=== PATIENT | male | born 1970 | race Caucasian/White ===

== ENCOUNTER 2024-03-28 07:12 | Emergency (ER) | payer OTHER, SELFPAY ==
--- NOTE | 2024-03-28 | CRLHL7_ITS ---
For Patients: As a result of the Century Cures Act, medical imaging exams and procedure reports are released immediately into your electronic medical record. You may view this report before your referring provider. If you have questions, please contact your health care provider. INDICATION: Acute stroke. TECHNIQUE: CTA head with contrast bolus tracking, 3D angiographic rendering using maximum intensity projection (MIP) and images permanently archived. FINDINGS: There is normal opacification of the intracranial vasculature. There is no large vessel occlusion. No aneurysm is identified. IMPRESSION: Unremarkable head CTA. Please note that all CT scans at this facility use dose modulation, iterative reconstruction, and/or weight-based dosing when appropriate to reduce radiation dose to as low as reasonably achievable. Dictated by Dashawn Valencia MD @ 03/28/2024 8:10:18 AM (Electronically Signed)
--- NOTE | 2024-03-28 | CRLHL7_ITS ---
For Patients: As a result of the Century Cures Act, medical imaging exams and procedure reports are released immediately into your electronic medical record. You may view this report before your referring provider. If you have questions, please contact your health care provider. INDICATION: Acute stroke. TECHNIQUE: CTA neck with contrast bolus tracking, 3D angiographic rendering using maximum intensity projection (MIP) and images permanently archived. FINDINGS: There is no significant carotid artery stenosis or dissection. There is no significant vertebral artery stenosis or dissection. The soft tissues of the neck are within normal limits. The cervical spine is in normal alignment. IMPRESSION: Unremarkable neck CTA. No significant carotid or vertebral artery stenosis or dissection. Please note that all CT scans at this facility use dose modulation, iterative reconstruction, and/or weight-based dosing when appropriate to reduce radiation dose to as low as reasonably achievable. Dictated by Dashawn Valencia MD @ 03/28/2024 8:09:15 AM (Electronically Signed)
[2024-03-28 07:14] VITALS: BP 148/92; PULSE 92; RESP 18; TEMP 36.1; O2SAT 98; BMI 37.3
--- NOTE | 2024-03-28 07:21 | CRLHL7_ITS ---
For Patients: As a result of the Century Cures Act, medical imaging exams and procedure reports are released immediately into your electronic medical record. You may view this report before your referring provider. If you have questions, please contact your health care provider. INDICATION: Left facial droop TECHNIQUE: CT head without contrast. COMPARISON: None. FINDINGS: symmetric. The ventricles, sulci and cisterns are normal. BRAIN: No acute hemorrhage. Hypodensity in the region of the right posterior limb of the internal capsule (4/33). EXTRA-AXIAL: Extra-axial spaces are normal. EXTRA-CRANIAL: Skull and facial bones are normal. The visualized sinuses and mastoids are clear. Orbits are normal. IMPRESSION: Area of hypodensity in the posterior limb of the right internal capsule, concerning for age-indeterminate infarct. These results were communicated to [place] by Bob on 03/28/20[address] Please note that all CT scans at this facility use dose modulation, iterative reconstruction, and/or weight-based dosing when appropriate to reduce radiation dose to as low as reasonably achievable. Dictated by Martha Rojas MD @ 03/28/2024 7:43:44 AM (Electronically Signed)
--- NOTE | 2024-03-28 07:25 | ED.GENADULT ---
HPI - General Adult General Chief complaint: Neuro Symptoms/Altered Deficit Stated complaint: Facial drooping/left side Time Seen by Provider: 03/28/24 07:15 History of Present Illness HPI narrative: patient noticed around 0630 face feeling funny and left facial droop, numbness/ tingling in the mouth, tongue, lips. taken some Benadryl before coming to ED. seems to be getting worse. hx DM, HTN, Hyperlidemia 54-year-old man presenting to the emergency department with concern of left-sided facial numbness weakness, drooping. This began about an hour prior to arrival when he was driving to work. He maintains that he woke this morning brushing his teeth everything was normal. Began to feel a little funny in the drive to work and then when eating a sandwich was noticing that tongue was somewhat numb. Thinking maybe that might be an allergic reaction took some Benadryl. Got to work and more apparent drooping of the left side of his face and boss said I am taking you into the ER. Is not having any pain. No recent head trauma. No chest pain or shortness of breath. Related Data Home Medications ?Medication ?Instructions ?Recorded ?Confirmed aspirin 81 mg chewable tablet 81 mg PO DAILY 03/28/24 03/28/24 (Aspirin Childrens) atorvastatin PO DAILY 03/28/24 loratadine PO DAILY 03/28/24 losartan PO DAILY 03/28/24 metformin .ROUTE DAILY 03/28/24 Previous Rx's ?Medication ?Instructions ?Recorded prednisone 20 mg tablet 40 mg (2 x 20 mg) PO DAILY 7 days 03/28/24 #14 tabs valacyclovir 1 gram tablet 1,000 mg PO TID 7 days #21 tabs 03/28/24 Allergies Allergy/AdvReac Type Severity Reaction Status Date / Time amoxicillin Allergy Unknown Verified 03/28/24 07:41 Review of Systems Status of ROS: Reports: 6 or more systems reviewed and unremarkable except as noted in History and below [facility] Social History Smoking Status: Never smoker How often do you have a drink containing alcohol: 2-4 times a month AUDIT-C Alcohol total score: 2 Non-prescribed substance use: denies use Exam Narrative: Exam Narrative: Pleasant. On the phone with his spouse is I am seeing quickly in triage. Heart rate is up a little bit in a regular rhythm. There is a trace end systolic murmur I think. Breathing easily. Moving all extremities without difficulty. Appears to have full strength throughout. Noticeable though in speaking with him, he is speaking clearly, is that there is clear drooping of the left side of his mouth and left eyebrows low. Maintaining left eye blink. Both eyes are watering but I believe he has been tearful while conversing with his spouse. Pupils are 3 mm and briskly reactive and accommodating. Skin is warm and dry without rash, no blisters. Const: Vital Signs, click to edit/add: Vital Signs - 24 hr 03/28/24 07:14 03/28/24 07:41 03/28/24 07:42 Temperature 97.0 F L Pulse Rate Pulse Rate [Pulse Oximeter] 92 82 Respiratory Rate 18 16 Blood Pressure Blood Pressure [Ri ght Upper Arm] 148/92 H 146/78 H Pulse Oximetry 98 97 96 Oxygen Delivery Me thod Room Air Room Air 03/28/24 07:42 03/28/24 07:45 03/28/24 08:00 Temperature Pulse Rate 85 Pulse Rate [Pulse Oximeter] 85 83 98 Respiratory Rate 16 16 16 Blood Pressure 146/78 H Blood Pressure [Ri ght Upper Arm] 146/78 H 128/80 147/111 H Pulse Oximetry 96 95 96 Oxygen Delivery Me thod Room Air Room Air 03/28/24 08:00 Temperature Pulse Rate Pulse Rate [Pulse Oximeter] Respiratory Rate 16 Blood Pressure Blood Pressure [Ri ght Upper Arm] 132/73 Pulse Oximetry 96 Oxygen Delivery Me thod Room Air Documenting provider has reviewed patient's vital signs: yes Course Vital Signs Vital signs: Initial Vital Signs Temperature 97.0 F L 03/28/24 07:14 Temperature Source Temporal Artery Scan 03/28/24 07:14 Pulse Rate 92 03/28/24 07:14 Respiratory Rate 18 03/28/24 07:14 Blood Pressure 148/92 H 03/28/24 07:14 Blood Pressure Mean 110 H 03/28/24 07:14 Blood Pressure Position Sitting 03/28/24 07:14 Pulse Oximetry 98 03/28/24 07:14 Oxygen Delivery Method Room Air 03/28/24 07:14 Vital Signs Temperature 97.0 F L 03/28/24 07:14 Pulse Rate 92 03/28/24 07:14 Respiratory Rate 18 03/28/24 07:14 Blood Pressure 148/92 H 03/28/24 07:14 Pulse Oximetry 98 03/28/24 07:14 Oxygen Delivery Method Room Air 03/28/24 07:14 Temperature 97.0 F L 03/28/24 07:14 Pulse Rate 98 03/28/24 08:00 Respiratory Rate 16 03/28/24 08:00 Blood Pressure 132/73 03/28/24 08:00 Pulse Oximetry 96 03/28/24 08:00 Oxygen Delivery Method Room Air 03/28/24 08:00 Medical Decision Making MDM Narrative Medical decision making narrative: 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 No lesions to indicate [employer]. Unusually abrupt onset however. He maintains that was not like this when he was brushing his teeth. Demonstrating no ataxia or discoordination otherwise to suggest brainstem lesion Stroke code was activated during my interview. Did speak with Dr. Jaeger who also suspects Stephens's palsy but will be reviewing and following this case. Independent review by me of noncontrast head CT does not reveal any acute abnormality, no bleed. Point of care blood sugar is 250. Noted history of diabetes. I was contacted by radiology to review initial head CT. Findings as below INDICATION: Left facial droop TECHNIQUE: CT head without contrast. COMPARISON: None. FINDINGS: symmetric. The ventricles, sulci and cisterns are normal. BRAIN: No acute hemorrhage. Hypodensity in the region of the right posterior limb of the internal capsule (4/33). EXTRA-AXIAL: Extra-axial spaces are normal. EXTRA-CRANIAL: Skull and facial bones are normal. The visualized sinuses and mastoids are clear. Orbits are normal. IMPRESSION: Area of hypodensity in the posterior limb of the right internal capsule, concerning for age-indeterminate infarct. These results were communicated to [place] by Bob on 03/28/2024 I do not think that this described hypodensity would explain the left-sided facial symptoms. Pending vascular studies at this time. Speaking again with Stroke Neuro. In agreement likely, certainly to have Stephens's. Vascular studies/CT angio of head and neck are unremarkable. However in setting of diabetes with suspected capsular lesion, recommending MRI if possible to do that this morning. We are actually able to do basic brain this morning and pending this now. Already taking 81 mg of aspirin daily. Decided to proceed with the MRI. Radiology over-read below. 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 Comparison: CT 03/28/2024 Findings: Examination is limited by motion artifact. The ventricles, sulci and gyri are normal size, shape and contour for age. The midline structures are centrally located with no evidence of shift. Few punctate scattered foci of T2 prolongation in the supratentorial white matter, particularly the left external capsule and bilateral temporal lobe subcortical white matter are nonspecific. There are no suspicious intra or extra-axial fluid collections. No pathologic susceptibility artifacts. The pituitary gland, optic chiasm, pineal gland, and cerebellar tonsils are unremarkable. No region of restricted diffusion. Expected flow voids in the cavernous carotids and basilar artery. Rightward deviation of the nasal septum. Impression: 1. No acute intracranial abnormalities. 2. Few scattered foci of T2 prolongation in the supratentorial white matter nonspecific. Differential considerations include sequela of migraine headaches, prior inflammation, and chronic small vessel disease No further progression of symptoms. Vitals stable. Confirmed that taking 81 mg of aspirin. See patient discharge plan for further discussion Stay well-hydrated. Watch your blood sugars closely partly as will be giving you prednisone which can raise your blood sugars. Continue to take your daily aspirin. Prescribing prednisone and valacyclovir. This can take weeks to resolve. Since you have trouble blinking, would recommend getting generic eye ointment or Lacri-Lube or refresh p.m. eyedrops to keep your eye moist. If using ointment dose at least 4 times daily. Would also consider patching at night. Can use 2 x 2 gauze and paper tape if you like. Or like you said, a pirate patch. Lab Data Lab results reviewed: Yes I reviewed the patient's lab results Labs: Lab Results 03/28/24 Range/Units 07:30 WBC 6.15 (4.50-11.00) K/uL RBC 5.31 (4.30-5.90) m/uL Hgb 15.6 (13.5-17.5) gm/dL Hct 45.7 (37.0-53.0) % MCV 86 (80-100) fL MCH 29 (26-34) pg MCHC 34 (32-36) gm/dL RDW Coeff of Elizabeth 12.7 (11.5-15.5) % Plt Count 151 (140-440) K/uL Neut % (Auto) 58.8 (42.0-72.0) % Lymph % (Auto) 27.2 (20-44) % [place] % (Auto) 8.8 (0.0-11.0) % Eos % (Auto) 4.2 (0.0-7.0) % Baso % (Auto) 0.5 (0.0-3.0) % Neut # (Auto) 3.62 (1.7-7.0) K/uL Lymph # (Auto) 1.67 (0.90-2.90) K/uL [place] # (Auto) 0.50 (0.00-0.90) K/UL Eos # (Auto) 0.26 (0.00-0.50) K/uL Baso # (Auto) 0.03 (0.00-0.30) K/uL Abs Immat Gran (auto) 0.03 (0.00-0.30) K/uL Imm/Tot Granulo (auto) 0.5 % INR 0.97 (0.91-1.10) APTT 28 (23-33) Seconds Sodium 137 (135-149) mmol/L Potassium 4.1 (3.6-5.1) mmol/L Chloride 104 (96-114) mmol/L Carbon Dioxide 20 (20-32) mmol/L Anion Gap 13 (7-15) mEq/L BUN 20 (7-30) mg/dL Creatinine 0.8 (0.5-1.5) mg/dL Estimated Creat Clear 93.96 Estimated GFR 106 ml/min Glucose 241 H (60-115) mg/dL Calcium 9.1 (8.4-10.6) mg/dL ECG Data Attestation: I personally reviewed and interpreted this ECG as follows: (Normal sinus rhythm at 82) Discharge Plan 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 Watch your blood sugars closely partly as will be giving you prednisone which can raise your blood sugars. Continue to take your daily aspirin. Prescribing prednisone and valacyclovir. This can take weeks to resolve. Since you have trouble blinking, would recommend getting generic eye ointment or Lacri-Lube or refresh p.m. eyedrops to keep your eye moist. If using ointment dose at least 4 times daily. Would also consider patching at night. Can use 2 x 2 gauze and paper tape if you like. Or like you said, a pirate patch. Prescriptions: New prednisone 20 mg tablet 40 mg PO DAILY 7 Days Qty: 14 0RF valacyclovir 1 gram tablet 1,000 mg PO TID 7 Days Qty: 21 0RF No Action metformin .ROUTE DAILY losartan PO DAILY atorvastatin PO DAILY aspirin [Aspirin Childrens] 81 mg tablet,chewable 81 mg PO DAILY loratadine [Claritin] PO DAILY Follow Up/Referrals: Ting Espinoza PA-C [Primary Care Provider] - Stand Alone Forms: [facility] [employer] Info Instructions
[2024-03-28 07:41] VITALS: BP 146/78; PULSE 82; RESP 16; O2SAT 97
[2024-03-28 07:41] LABS: Basophils Absolute Auto 0.03 K/uL (0.00-0.30); Basophils Percent Auto 0.5 % (0.0-3.0); Eosinophils Absolute Auto 0.26 K/uL (0.00-0.50); Eosinophils Percent Auto 4.2 % (0.0-7.0); Hematocrit 45.7 % (37.0-53.0); Hemoglobin* 15.6 gm/dL (13.5-17.5); Immature Granulocytes Abs Auto 0.03 K/uL (0.00-0.30); Immature Granulocytes Pct Auto 0.5 %; Lymphocytes Absolute Auto 1.67 K/uL (0.90-2.90); Lymphocytes Percent Auto 27.2 % (20-44); Mean Corpuscular HGB Conc 34 gm/dL (32-36); Mean Corpuscular Hemoglobin 29 pg (26-34); Mean Corpuscular Volume 86 fL (80-100); Monocytes Percent Auto 8.8 % (0.0-11.0); Neutrophils Absolute Auto 3.62 K/uL (1.7-7.0); Neutrophils Percent Auto 58.8 % (42.0-72.0); Platelet Count* 151 K/uL (140-440); RDW Coefficient of Variation % 12.7 % (11.5-15.5); Red Blood Count 5.31 m/uL (4.30-5.90); White Blood Count* 6.15 K/uL (4.50-11.00)
[2024-03-28 07:42] VITALS: BP 146/78; PULSE 85; RESP 16; O2SAT 96
[2024-03-28 07:44] LABS: Slide Review Reflex No
[2024-03-28 07:45] VITALS: BP 128/80; PULSE 83; RESP 16; O2SAT 95
[2024-03-28 07:59] LABS: Chloride* 104 mmol/L (96-114)
[2024-03-28 08:00] VITALS: BP 132/73; BP 147/111; PULSE 98; RESP 16; O2SAT 96
[2024-03-28 08:00] LABS: Potassium* 4.1 mmol/L (3.6-5.1); Sodium* 137 mmol/L (135-149)
--- OUTSIDE RECORDS SUMMARY | 2024-03-28 08:01 | XMS_ITS | Continuity of Care Document ---
Author Organization [facility] Address [address] [place] [address] Phone Care Team Providers Care Wet Process Head Miller Name Role Phone Raoul Vega MD Unavailable Unavailable Allergies, Adverse Reactions, Alerts Substance Reaction Status Criticality amoxicillin Active No Information Medications Medication Instructions Dosage Effective Dates (start - stop) Status Comments METFORMIN HCL (unknown strength) Not Available - Active ATORVASTATIN CALCIUM (unknown strength) Not Available - Active ASPIRIN (unknown strength) Not Available - Active IBUPROFEN (unknown strength) Not Available - Active LOSARTAN POTASSIUM (unknown strength) Not Available - Active PRILOSEC (unknown strength) Not Available - Active CLARITIN (unknown strength) Not Available - Active Procedures Procedure Date Postop Followup Visit Special Serv Nec, Procedor Report Pa Assist Remove Lumbar Spine Lamina, 1 Seg Pa Assist Remove Added Spine Lamina, 1 S eg Remove Lumbar Spine Lamina, 1 Seg Remove Added Spine Lamina, 1 Seg 2018 Office/Outpatient Visit,Est, Mod 2017 Office/Outpatient Visit,Est, Mod 2017 Office/Outpatient Visit,New, Mod 2017 Office/Outpatient Visit,Est, Mod 2013 Special Serv Nec, Procedor Report Office/Outpatient Visit,Est, Mod 2013 Special Serv Nec, Procedor Report Postop Followup Visit Special Serv Nec, Procedor Report Laminotomy, Reexplr 1 Intrspc Lumbr Pa Assist Laminotomy, Reexplr 1 Intrspc Lumbr Office/Outpatient Visit,Est, Mod 2012 Special Serv Nec, Procedor Report Office/outpatient visit,est, mod 2010 Special serv NEC, procedor report Office/outpatient visit,est, mod 2010 Special serv NEC, procedor report Office/outpatient visit,est, mod 2010 Special serv NEC, procedor report Postop followup visit Special serv NEC, procedor report Postop followup visit Special serv NEC, procedor report Low back disk surgery/decompress 2009 Office/outpatient visit,est, mod 2009 Special serv NEC, procedor report Office/outpatient visit,est, mod 2009 Office consultation, moderate 9 Advance Directives Directive Yes / No Effective Date File Name No Information Encounters Encounter Description Practice Location Reason(s) For Visit Diagnoses Date Provider Providers Copied on Encounter [facility], [address], [place], [place], [id number], [place] [phone] [facility] No Information Silvia Silveira. [facility], [address] [place] [address], [id number], [place]. tel:[phone] [facility], [address], [place], [place], [id number], [place] tel:[phone] [facility] Other intervertebra l disc displacement, lumbar region Silvia Silveira. [facility], [address] [place] [address] [address], [place], [place], [id number], [place]. tel:[phone] Referring Provider: Donato Andrews, [facility] [address], [place], [address] . tel:[phone] [facility], [address] [place] [address], [id number], [place] tel:[phone] [facility] No Information 9 Jaya Sewell. [facility], [address], [place], [place], [id number], [place]. tel:[phone] Referring Provider: Donato Andrews, [facility] [address] [place] [address] [address], [place], [address] . tel:[phone] [facility], [address], [place], [place], [id number], [place] tel:[phone] [facility] No Information Silvia Silveira. [facility], [address] [place] [address] [address], [place], [place], [id number], [place]. tel:[phone] Referring Provider: Donato Andrews, [facility] [address] [place] [address] [address], [place], [address] . tel:[phone] Office/Outpa tient Visit,Est, Mod [facility], [address], [place], [place], [id number], [place] tel:[phone] [facility] Other intervertebra l disc displacement, lumbar regionSpinal stenosis, lumbar region without neurogenic claudication Silvia Silveira. [facility], [address] [place] [address] [address], [place], [place], [id number], [place]. tel:[phone] Referring Provider: Donato Andrews, [facility] [address], [place], [address] . tel:[phone] Office/Outpa tient Visit,Est, Mod [facility], [address], [place], [id number], [place] tel:[phone] [facility] Other intervertebra l disc displacement, lumbar regionOther intervertebra l disc displacement, lumbosacral regionRadicul opathy, lumbar regionRadicul opathy, lumbosacral region 8 Jaya Sewell. [facility], [address], [place], [place], [id number], [place]. tel:[phone] Referring Provider: Donato Andrews, [facility] [address], [place], [address] . tel:[phone] Office/Outpa tient Visit,New, Mod [facility], [address], [place], [id number], [place] tel:[phone] [facility] Other spondylosis, lumbosacral regionRadicul opathy, lumbosacral region 8 Jaya Sewell. [facility], [address], [place], [place], [id number], [place]. tel:[phone] Referring Provider: Donato Andrews, [facility] [address] [facility] [address], [place], [address] . tel:[phone] Office/Outpa tient Visit,Est, Mod Z [facility], [address], [place], [address], [place] tel:[phone] [facility] [place] No Information 4 Silvia Silveira. [facility], [address], [place], [place], [id number], [place]. tel:[phone] Referring Provider: Ting Malhotra, [address], [address]. tel:[phone] Office/Outpa tient Visit,Est, Mod Z [facility], [address], [place], [address], [place] tel:[phone] [facility] No Information 4 Silvia Silveira. [facility], [address], [place], [place], [id number], [place]. tel:[phone] Referring Provider: Ting Malhotra, [address], [address]. tel:[phone] Z [facility], [address], [place], [address], [place] tel:[phone] [facility] No Information 4 Silvia Silveira. [facility], [address], [place], [place], [id number], [place]. tel:[phone] Referring Provider: Ting Malhotra, [address], [address]. tel:[phone] Z [facility], [address], [place], [address], [place] tel:[phone] [facility] No Information 4 Silvia Silveira. [facility], [address], [place], [place], [id number], [place]. tel:[phone] Referring Provider: Ting Malhotra, [address], [address]. tel:[phone] Office/Outpa tient Visit,Est, Mod Z [facility], [address], [place], [address], [place] tel:[phone] [employer] [place] 3 Silvia Silveira. [facility], [address], [place], [place], [id number], [place]. tel:[phone] Referring Provider: Ting Malhotra, [address], [address]. tel:[phone] Office/outpa tient visit,est, mod Z [facility], [address], [place], [address], [place] tel:[phone] [facility] No Information 1 Silvia Silveira. [facility], [address], [place], [place], [id number], [place]. tel:[phone] Referring Provider: Ting Malhotra, [address], [address]. tel:[phone] Office/outpa tient visit,est, mod Z [facility], [address], [place], [address], [place] tel:[phone] [facility] No Information Zack-0 9 1 Silvia Silveira. [facility], [address], [place], [place], [id number], [place]. tel:[phone] Referring Provider: Ting Malhotra, [address], [address]. tel:[phone] Office/outpa tient visit,est, mod Z [facility], [address], [place], [address], [place] tel:[phone] [facility] No Information 1 Silvia Silveira. [facility], [address], [place], [place], [id number], [place]. tel:[phone] Referring Provider: Ting Malhotra, [address], [address]. tel:[phone] Z [facility], [address], [place], [address], [place] tel:[phone] [facility] No Information Jan-0 2-201 0 Silvia Silveira. [facility], [address], [place], [place], [id number], [place]. tel:[phone] Referring Provider: Ting Malhotra, [address], [address]. tel:[phone] Z [facility], [address], [place], [address], [place] tel:[phone] [facility] No Information 0 Silvia Silveira. [facility], [address], [place], [place], [id number], [place]. tel:[phone] Referring Provider: Ting Malhotra, [address], [address]. tel:[phone] Z [facility], [address], [place], [address], [place] tel:[phone] [facility] No Information Sep-2 0-201 0 Silvia Silveira. [facility], [address], [place], [place], [id number], [place]. tel:[phone] Referring Provider: Ting Malhotra, [address], [address]. tel:[phone] Z [facility], [address], [place], [address], [place] tel:[phone] [facility] [employer] No Information Sep 0-201 0 Silvia Silveira. [facility], [address], [place], [place], [address], [place]. tel:[phone] Office/outpa tient visit,est, mod Z [facility], [address], [place], [address], [place] tel:[phone] [facility] [employer] No Information 5-201 0 Silvia Silveira. [facility], [address], [place], [place], [id number], [place]. tel:[phone] Referring Provider: Ting Malhotra, [address], [address]. tel:[phone] Office/outpa tient visit,est, mod Z [facility], [address], [place], [address], [place] tel:[phone] [facility] [employer] No Information 1-201 0 Silvia Silveira. [facility], [address], [place], [place], [id number], [place]. tel:[phone] Referring Provider: Ting Malhotra, [address], [address]. tel:[phone] Office consultation , moderate Z [facility], [address], [place], [address], [place] tel:[phone] [facility] No Information 9-200 9 Silvia Raoul. [facility], [address] [facility] [address], [place], [place], [address], [place]. tel:[phone] Referring Provider: Ting Malhotra, [address], [address]. tel:[phone] Family History Family Member Type Diagnosis Age At Onset No Information Payers Payer name Insurance type Covered libertarian ID Tiffany germain(yessica) [place] [employer] 15 [id number] Social History Type Description Quantity Date Captured Comments Sex Male Smoking Status No Information Chief Complaint And Reason For Visit No Information Reason For Referral Reason For Referral No Information Plan Of Treatment Date Type Action Status Future Order: Radiology Order Tr ansforaminal Jpwgnio-Rivquw-Plfwcwfjvudxbw (TRANSLUMNONPART), Ordered on: Ordered History Of Present Illness Encounter Date Complaint History Of Prese nt Illness No Information Functional Status Date Functional Assessmen t No Information Instructions Date Instruction Additional Infor mation No Information Assessments Type Assessment Date No Information Patient Care Teams Name Effective Dates (start - stop) Status Members No Information
--- OUTSIDE RECORDS SUMMARY | 2024-03-28 08:01 | XMS_ITS | Clinical Summary ---
Author Organization [facility] Address [address] [place] [address] Care Team Providers Care Bottle Cleaner Name Role Phone Elsewhere, Pcp Primary Care Provider Unavailabl e Source Comments Patient records contain information from all sites at [facility]. For routine questions regarding patient records, call [phone] during business hours, M-F 8:00 AM - 5:00 PM Central Time. Record requests for emergency care only can be directed to [phone] at any time.[facility] Allergies Active Allergy Reactions Criticality Noted Date Comments Amoxicillin Rash 03/19/2007 Other reaction(s): Unknown Medications albuterol (VENTOLIN HFA) 90 mcg/actuation inhaler Inhale 2 puffs every 4 (four) hours as needed. 7 Active loratadine 10 mg capsule Take 10 mg by mouth daily. 3 Active atorvastatin (for_LIPITOR) 10 mg tablet Take 1 tablet (10 mg total) by mouth at bedtime. 90 tablet 3 8 Active omeprazole (PriLOSEC) [address] capsule Take 20 mg by mouth daily. 3 8 Active aspirin 81 mg chewable tablet Chew 81 mg daily. Active blood sugar diagnostic strips 1 test daily. 90 test 3 9 Active ACCU-CHEK GUIDE GLUCOSE METER misc TEST BLOOD SUGARS. E11.9 0 9 Active metFORMIN XR (GLUCOPHAGE-XR) 500 mg 24 hr tablet Take 2 tablets (1,000 mg total) by mouth daily with breakfast. 180 tablet 3 9 Active omeprazole (PriLOSEC) [address] capsule TAKE ONE CAPSULE (20 MG TOTAL) BY MOUTH DAILY 90 capsule 3 9 Active azithromycin (Zithromax Z-Wili) 250 mg tabletIndicatio ns:Sinusitis Acute Take 2 tablets the first day, then 1 tablet daily for 4 days. 6 tablet 9 Active Additional Information Patient not taking.Reported on 11/22/2019 losartan (COZAAR) 100 mg tablet TAKE ONE TABLET BY MOUTH ONCE DAILY 90 tablet 3 0 Active azithromycin (ZITHROMAX) 250 mg tablet Take 500 mg (2 tablets) by mouth the first day then 250 mg (1 tablet) by mouth for 4 more days. 6 tablet 1 Active Active Problems Problem Noted Date Diagnosed Date COVID-19 Infection 05/24/2020 Diabetes Mellitus Type 2 Hyperglycemia 9 Gastroesophageal Reflux Disease 10/04/2018 Hypertension Essential Primary 08/12/2018 Hyperlipidemia On Treatment 08/12/2018 Body Mass Index 40.0 To 44.9 Adult 10/30/2016 Overview (11/16/2016): Body mass index (BMI) 40.0-44.9, adult\.br\Rule activated problem due to BMI 40- 44 posted on 10/30 at 08:03 CDT. Fatty Liver 07/29/2016 Other Intervertebral Disc Displacement Lumbar Re gion 04/08/2007 Resolved Problems Problem Noted Date Diagnosed Date Resolved Date Diabetes Mellitus Type 2 Uncontrolled 08/17/2013 10/04/2018 Overview (07/15/2016): DM2 Uncontrolled Hypertension 04/06/2012 08/12/2018 Overview (07/15/2016): Hypertension essential, NOS Immunizations Immunization Administration Dates Next Due Influenza, Unspecified 03/12/2016 PPSV23 07/29/2016 Tdap 03/12/2016,01/27/2014 Family History Medical History Relation Name Comments Breast cancer Aunt Diabetes Brother Hyperlipidemia Brother Hypertension Brother Diabetes Father Heart attack Father Hyperlipidemia Father Hypertension Father Stent placement Father Prostate cancer Father's Brother Coronary artery disease Grandfather Diabetes Grandfather Heart attack Grandfather Diabetes Grandmother Allergies Mother Esophageal cancer Mother Gastroesophageal reflux disease Mother Heart attack Mother Pacemaker catheter Mother Anesthesia problems Neg Hx Bleeding Disorder Neg Hx Colon cancer Neg Hx Relation Name Status Comments Aunt Brother Father Father's Brother Grandfather Grandmother Mother Social History Tobacco Use Types Packs/Day Years Used Date Smoking Tobacco: Never Smokeless Tobacco: Never Alcohol Use Standard Drinks/Week Comments Yes 4 (1 standard drink = 0.6 oz pur e alcohol) AUDIT-C Answer Date Recorded Frequency of Alcohol Consumption 2-3 times a wee k 08/27/2018 Average Number of Drinks 1 or 2 019 Frequency of Binge Drinking Not on file 06/2018 Overall Financial Resource Strain (CARDIA) Answe r Date Recorded Difficulty of Paying Living Expenses Somewhat tran rd 08/27/2018 PHQ-2 Answer Date Recorded PHQ-2 Score 0 08/27/2018 Exercise Vital Sign Answer Date Recorde d Days of Exercise per Week 0 days 2018 Minutes of Exercise per Session 0 min 08/27/2018 Nutrition Answer Date Recorded Nutrition: EVOO Fat Source Unknown 04/16 Nutrition: Servings of Fruits/Vegetables per Day Not on file 04/16/2020 Dental Answer Date Recorded Dental: Regular Dentist Unknown 04/16/19 21 Sex and Gender Information Value Date Recorded Sex Assigned at Not on file Legal Sex Male 5:39 AM [employer] CONSULTANT Gender Identity Male 05/23/2020 11:46 AM CDT Sexual Orientation Straight 05/23/2020 11 :46 AM CDT 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 Not on file Not on file Last Filed Vital Signs Vital Sign Reading Time Taken Comments Blood Pressure 154/80 11/22/2019 5:58 PM CDT Pulse 94 11/22/2019 5:58 PM CDT Temperature 36.2 C (97.2 F) 11/22/2019 5:58 PM CDT Respiratory Rate 16 02/22/2019 8:48 AM [employer] CONSULTANT Oxygen Saturation 97% 11/22/2019 5:58 PM CDT Inhaled Oxygen Concentration - - Weight 113 kg (250 lb 3.6 oz) 11/22/2019 5:58 PM CDT Height 166.5 cm (5' 5.55) 09/17/2018 3:51 PM CD T Body Mass Index 40.94 09/17/2018 3:51 PM CDT Plan of Treatment Health Maintenance Due Date Last Done Comments CT Colonography 1972 Cologuard 1972 Colonoscopy 1972 Colorectal Cancer Screening 1972 Dilated Eye Exam 1972 FIT 1972 HIV Screening 1972 Office Visit for Blood Pressure Check / Re-check 1972 Hepatitis A Vaccines (1 of 2 - Risk 2-dose series) 02/15/1991 Hepatitis B Vaccines (1 of 3 - 19+ 3-dose series) 02/15/1991 Diabetes Education 08/05/2016 08/31/2013 Pneumococcal vaccine (50+ years) (2 of 2 - PCV) 07/29/2017 07/29/2016 Hemoglobin A1C 04/06/2019 10/04/2018, 07/25, 10/15/2017, Additional history exists Urine Albumin 08/21/2019 08/20/2018, 07/2017, 03/07/2016, Additional history exists Diabetic Office Visit with Foot Exam 10/05/2019 10/04/2018, 03/31/2017, 07/29/2016, Additional history exists Creatinine Level (Kidney Function Test) 03/16/2020 03/16/2019, 10/04/2018, 08/20/2018, Additional history exists Potassium Level 03/16/2020 03/16/2019, 09/23, 08/20/2018, Additional history exists Sodium Level 03/16/2020 03/16/2019, 09/23, 08/20/2018, Additional history exists Zoster Vaccines (1 of 2) 02/15/2022 Lipid (Cholesterol) Screening 08/21/2023 08/20/2018, 03/31/2017, 09/09/2016, Additional history exists COVID-19 Vaccine (1 - 2023- season) 2023 Influenza Vaccine (#1) 2023 03/12/2016 Depression Screening (Annual PHQ-2) 02/24/2024 DTaP,Tdap,and Td Vaccines (3 - Td or Tdap) 03/12/2026 03/12/2016, 01/27/2014 Hepatitis C Screening Completed 09/05/2013 IPV Vaccines Aged Out No longer eligi ble based on patient's age to complete this topic Procedures Procedure Name Priority Date/Time Associated Diagnosis Comments ELECTROLYTE (CHEM 4) PANEL, S/P Routine 10/04/2018 5:56 PM CDT Hypertension Essential Primary CREATININE WITH EGFR, S/P Routine 10/04/2018 5:56 PM CDT Hypertension Essential Primary HEMOGLOBIN A1C, B Routine 10/04/2018 7:5 7 AM CDT Diabetes Mellitus Type 2 (HCC) ALBUMIN, RANDOM, U Routine 08/20/2018 7: 24 AM CDT Diabetes Mellitus Type 2 (HCC) LIPID PANEL, S Routine 08/20/2018 7:24 AM CDT Hyperlipidemia On Treatment HXZZORDERS Routine 09/05/2013 7:48 AM CDT from Last 3 Months or Most Recently Relevant to Health Maintenance Results * Electrolyte (Chem 4) Panel (10/04/2018 5:56 PM CDT) Sodium, S 142 135 - 145 mmol/L 10/04/2018 6:57 PM CDT Potassium, S 3.8 3.6 - 5.2 mmol/L 10/04/2018 6:57 PM CDT Chloride, S 103 98 - 107 mmol/L 10/04/2018 6:57 PM CDT Bicarbonate, S 24 22 - 29 mmol/L 10/04/2018 6:57 PM CDT Anion Gap 15 7 - 15 10/04/2018 6:57 PM CDT Blood (Blood, Venous) 10/04/2018 5:56 PM CDT 10/04/2018 6:01 PM CDT us Len Ortiz M.D. LAB BLOOD ADD-ON Final Result [facility] [address] [place] [address], [facility] * Creatinine with Estimated GFR (10/04/2018 5:56 PM CDT) Creatinine 0.97 0.74 - 1.35 mg/dL 10/04/2018 7:02 PM CDT eGFR-Non Black/ >90 >=60 mL/min/BSA 10/04/2018 7:02 PM CDT Comment: ----ADDITIONAL INFORMATION---- Estimated GFR calculated using the 2009 CKD_EPI creatinine equation. eGFR-Black/Afric an Djiboutian >90 >=60 mL/min/BSA 10/04/2018 7:02 PM CDT Comment: ----ADDITIONAL INFORMATION---- Estimated GFR calculated using the 2009 CKD_EPI creatinine equation. Blood (Blood, Venous) 10/04/2018 5:56 PM CDT 10/04/2018 6:01 PM CDT Len Ortiz M.D. LAB BLOOD ADD-ON Final Result Performing Organization Address [facility] Co de Phone Number [facility] [address] [place], [place] [id number] * (ABNORMAL) Hemoglobin A1c (10/04/2018 7:57 AM CDT) Hemoglobin A1c, B 8.1(H) 4.2 - 5.6 % 10/04/2018 9:56 AM CDT Comment: Hemoglobin A1c values greater than or equal to 6.5 percent are diagnostic for diabetes mellitus. Diagnosis should be confirmed by repeat testing. In diabetic patients, HbA1c goals should be discussed with healthcare provider. Blood (Blood, Venous) 10/04/2018 7:57 AM CDT 10/04/2018 8:01 AM CDT Karime Moran APRN C.N.PChristopher LAB BLOOD ADD-ON Fi nal Result Performing Organization Address [facility] Co de Phone Number [facility] [address] [place] [address], [facility] * (ABNORMAL) Lipid Panel (08/20/2018 7:24 AM CDT) Cholesterol, Total 127 mg/dL 2018 8:41 AM CDT Comment: ----REFERENCE VALUE---- Desirable: < 200 Borderline high: 200 - 239 High: > or = 240 Triglycerides 109 mg/dL 08/20/2018 8:41 AM CDT Comment: ----REFERENCE VALUE---- Normal: <150 Borderline high: 150-199 High: 200-499 Very high: > or =500 Cholesterol, HDL, S 31(L) >=40 mg/dL 08/20/2018 8:41 AM CDT Calculated LDL 74 mg/dL 08/20/2018 8:41 AM CDT Comment: ----REFERENCE VALUE---- Desirable: <100 Above Desirable: 100-129 Borderline high: 130-159 High: 160-189 Very high: > or =190 Cholesterol, Non-HDL, Calculated 96 mg/dL 08/20/2018 8:41 AM CDT Comment: ----REFERENCE VALUE---- Desirable: <130 Above Desirable: 130-159 Borderline high: 160-189 High: 190-219 Very high: > or =220 Blood (Blood, Venous) 08/20/2018 7:24 AM CDT 08/20/2018 7:51 AM CDT Len Otriz M.D. LAB BLOOD ADD-ON Final Result Performing Organization Address [facility] Co de Phone Number [facility] [address] [place] [address], [facility] * Microalbumin, Random, Urine (08/20/2018 7:24 AM CDT) Microalbumin 15.6 mg/L 08/20/2018 9:38 AM CDT Creatinine 119 mg/dL 08/20/2018 9:38 AM CDT Albumin/Creatinin e Ratio 13 <17 mg/g 08/20/2018 9:38 AM CDT Urine (Urine, Clean Catch) 08/20/2018 7:24 AM CDT 08/20/2018 7:49 AM CDT Len Ortiz M.D. LAB URINE ORDERABLES F inal Result Performing Organization Address [facility] Co de Phone Number [facility] [address] [place] [address], [facility] * HXZZORDERS (09/05/2013 7:48 AM CDT) HXHep C Ab-Glenn Negative Negative POWERCHART Comment: Lyytyb-nz-xewvbz ratio is <1.00. Test Performed by: [facility] - [address] [address] Chief Engineer: Ted Price III, M.D. Blood 09/05/2013 7:48 AM CDT Andrea Crowder M.D. LAB HISTORICAL ORDERS F inal Result POWERCHART from Last 3 Months or Most Recently Relevant to Health Maintenance Insurance [facility] Care Teams Bottle Cleaner Relationship Specialty Start Date End Date Elsewhere, Pcp PCP - General Family Medicine 04/19/20
--- OUTSIDE RECORDS SUMMARY | 2024-03-28 08:01 | XMS_ITS | Clinical Summary ---
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 Take 1 tablet every 6-8 hours as needed Active omeprazole (PRILOSEC) 20 mg capsule Take 20 mg by mouth once daily before a meal. Active loratadine (CLARITIN) 10 mg tablet Take 10 mg by mouth once daily if needed. Active losartan (COZAAR) 100 mg tablet Take 100 mg by mouth once daily. Active metFORMIN (GLUCOPHAGE XR) 500 mg Extended-Releas e tablet Take 1,000 mg by mouth once daily. Active clobetasol cream 0.05% (TEMOVATE) 0.05 % cream Apply topically to affected area(s) 2 times daily. Active aspirin chewable 81 mg chewable tablet Take 81 mg by mouth once daily with a meal. Active albuterol HFA 90 mcg/actuation inhaler Inhale 2 Puffs by mouth every 4 hours if needed. Active atorvastatin (LIPITOR) 10 mg tablet Take 10 mg by mouth at bedtime. Active ibuprofen (ADVIL; MOTRIN) 200 mg tabletIndicatio ns:pain Take 400-600 mg by mouth every 6 hours if needed for Pain. Indications: Pain Active oxyCODONE (ROXICODONE) 5 mg immediate release tabletIndicatio ns:HNP (herniated nucleus pulposus), lumbar Take 1-2 tablets by mouth every 4 hours if needed for Pain. 60 tablet 10/11/2018 3:10 PM CDT 9 Active diazePAM (VALIUM) 5 mg tabletIndicatio ns:HNP (herniated nucleus pulposus), lumbar Take 1 tablet by mouth every 6 hours if needed for Muscle Spasm. 20 tablet 10/11/2018 3:10 PM CDT 9 Active ibuprofen (ADVIL; MOTRIN) 800 mg tabletIndicatio ns:HNP (herniated nucleus pulposus), lumbar Take 1 tablet by mouth every 6 hours if needed for Pain. 60 tablet 9 Active benzonatate (TESSALON) 200 mg capsuleIndicati ons:Acute viral bronchitis Take 1 capsule by mouth 3 times daily if needed for Cough. 20 capsule 0 Active albuterol HFA (PRO-AIR; VENTOLIN; PROVENTIL) 90 mcg/actuation inhalerIndicati ons:Cough variant asthma Inhale 2 Puffs by mouth 4 times daily if needed for Shortness Of Breath or Wheezing. 8 g 3 Active Active Problems Problem Noted Date Diagnosed Date HNP (herniated nucleus pulposus), lumbar 014 Family History Medical History Relation Name Comments No Known Problems Brother Hypertensi on. Diabetes. Hyperlipidemia. No Known Problems Daughter Heart Disease Father Former smoker. PA. Diabetes. No Known Problems Half-Sister Same fathe r. Different dad. Heart Disease Mother Never smoked. PA. 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 Gender Identity Not on file Sexual Orientation Not on file Obstetrics History Last Filed Vital Signs Vital Sign Reading Time Taken Comments Blood Pressure 151/74 11/30/2022 5:50 PM CDT Pulse 88 11/30/2022 5:50 PM CDT Temperature 36.9 C (98.4 F) 11/30/2022 2:47 PM CDT Respiratory Rate 20 11/30/2022 5:50 PM CDT Oxygen Saturation 95% 11/30/2022 5:50 PM CDT Inhaled Oxygen Concentration - - Weight 106.3 kg (234 lb 6.4 oz) 11/30/2022 2:47 PM CDT Height 165.1 cm (5' 5) 11/30/2022 2:47 PM CDT Body Mass Index 39.01 11/30/2022 2:47 PM CDT Plan of Treatment Health Maintenance Due Date Last Done Comments Tdap 02/15/1983 Depression screening for age 12+ 1984 HIV for age 15-65 02/15/1987 BMI (ht and wt on same day) for age 18+ 02/15/1990 Hepatitis C screening for age 18-79 02/15/1990 Tetanus booster 1992 Colonoscopy through age 75 02/15/2017 Lipids for age 45-75 02/15/2017 Pneumococcal series for age 50+ (1 of 1 - PCV) 022 Zoster (shingles) series for age 50+ (1 of 2) 02/16/20 22 COVID-19 vaccine series ( - 2023- season) 4 Influenza for age 50-64 10/25/2023 Insurance [facility] [id number] [place] [id number] [employer] [facility] [place] [id number] [place] [id number] [facility] BLUE CROSS OF [place] Advance Directives * Full Code (Latest Code Status on File) Date Activated Date Inactivated Comments 03/07/2013 7:56 AM 03/07/2013 4:35 PM * Full Code Date Activated Date Inactivated Comments 11/12/2009 8:31 AM 11/12/2009 4:46 PM 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
[2024-03-28 08:02] LABS: Creatinine* 0.8 mg/dL (0.5-1.5); Est. Creatinine Clearance* 93.96; Estimated Glomerular Filt Rate 106 ml/min
[2024-03-28 08:03] LABS: Anion Gap 13 mEq/L (7-15); Blood Urea Nitrogen* 20 mg/dL (7-30); Calcium* 9.1 mg/dL (8.4-10.6); Carbon Dioxide* 20 mmol/L (20-32); Glucose* 241 mg/dL (60-115); INR 0.97 (0.91-1.10); Prothrombin Time 13.4 Seconds
[2024-03-28 08:04] LABS: Partial Thromboplastin Time* 28 Seconds (23-33)
--- NOTE | 2024-03-28 08:29 | CRLHL7_ITS ---
For Patients: As a result of the Century Cures Act, medical imaging exams and procedure reports are released immediately into your electronic medical record. You may view this report before your referring provider. If you have questions, please contact your health care provider. 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 Comparison: CT 03/28/2024 Findings: Examination is limited by motion artifact. The ventricles, sulci and gyri are normal size, shape and contour for age. The midline structures are centrally located with no evidence of shift. Few punctate scattered foci of T2 prolongation in the supratentorial white matter, particularly the left external capsule and bilateral temporal lobe subcortical white matter are nonspecific. There are no suspicious intra or extra-axial fluid collections. No pathologic susceptibility artifacts. The pituitary gland, optic chiasm, pineal gland, and cerebellar tonsils are unremarkable. No region of restricted diffusion. Expected flow voids in the cavernous carotids and basilar artery. Rightward deviation of the nasal septum. Impression: 1. No acute intracranial abnormalities. 2. Few scattered foci of T2 prolongation in the supratentorial white matter nonspecific. Differential considerations include sequela of migraine headaches, prior inflammation, and chronic small vessel disease. Dictated by Ever Izaguirre MD @ 03/28/2024 9:15:36 AM (Electronically Signed)
== END 2024-03-28 10:02 | disposition home or self-care (01) ==
PROVIDERS: Emergency Provider Family Medicine; PCP Physician Assistant
DX: G51.0 Bell's palsy (principal)
CPT/HCPCS: 36415; 70450; 70496; 70498; 70551; 80048; 82962; 85025; 85610; 85730; 93005; 94761; 99284; 99285; Q9967